=== PATIENT | male | born 1980 | race Caucasian/White ===

== ENCOUNTER 2018-03-01 09:01 | Emergency (ER) | payer MEDICARE, OTHER ==
[~2018-03-01] VITALS: Ht 170.2 cm; Wt 131.5 kg
[2018-03-01 09:06] VITALS: BP_SYST 140
[2018-03-01] MEDS ORDERED: guaiFENesin/DEXTROMETHORPHAN 10 ML UDC PO ONE (09:30)
[2018-03-01 10:45] VITALS: BP_SYST 138
== END 2018-03-01 10:28 | disposition home or self-care (01) ==
LOC: SED 09:01
DX: J40 Bronchitis, not specified as acute or chronic (principal)
CPT/HCPCS: 36415; 86710; 99283

== ENCOUNTER 2019-06-08 14:32 | Emergency (ER) | payer OTHER ==
[~2019-06-08] VITALS: Ht 170.2 cm; Wt 145.1 kg
[2019-06-08 14:40] VITALS: BP_SYST 155
[2019-06-08] MEDS ORDERED: AZITHROMYCIN 250 MG TABLET PO ONE (15:15)
[2019-06-08] MEDS ORDERED: cefTRIAXone 1 GM VIAL IM ONE (15:15)
[2019-06-08 15:19] VITALS: BP_SYST 122
[2019-06-08 15:35] LABS: BILIRUBIN,URINE 1+ (NEGATIVE); BLOOD, URINE 3+ (NEGATIVE); COLOR,URINE BROWN (YELLOW); GLUCOSE,URINE NEGATIVE (NEGATIVE); KETONES,URINE NEGATIVE (NEGATIVE); LEUKOCYTE ESTERASE ,URINE 3+ (NEGATIVE); NITRITE, URINE POSITIVE (NEGATIVE); PH,URINE 6.5 (5.0-8.0); PROTEIN URINE 2+ (NEGATIVE)
[2019-06-08 16:00] LABS: CLARITY/URINE CLOUDY (CLEAR)
[2019-06-08 16:06] LABS: RBC,URINE >100 /HPF (0-3); WBC,URINE 50-80 /HPF (0-3)
[2019-06-08 16:07] LABS: BACTERIA,URINE MODERATE /HPF (None Seen)
[2019-06-10 13:16] LABS: CHLAMYDIA TRACHOMATIS NAA Negative (Negative); NEISSERIA GONORRHOEAE NAA Negative (Negative)
== END 2019-06-08 15:15 | disposition home or self-care (01) ==
LOC: SED 14:32
DX: N39.0 Urinary tract infection, site not specified (principal)
CPT/HCPCS: 81000-TC; 82962; 87086; 87186-TC; 87491; 87591; 96372; 99283

== ENCOUNTER 2019-06-10 17:02 | Emergency (ER) | payer MEDICAID, OTHER ==
[~2019-06-10] VITALS: Ht 167.6 cm; Wt 148.8 kg
[2019-06-10 17:03] VITALS: BP_SYST 166
[2019-06-10 17:30] VITALS: BP_SYST 154
== END 2019-06-10 17:36 | disposition home or self-care (01) ==
LOC: SED 17:02
DX: N39.0 Urinary tract infection, site not specified (principal); R05 Cough
CPT/HCPCS: 99283

== ENCOUNTER 2019-07-31 11:57 | Emergency (ER) | payer MEDICAID, OTHER ==
[~2019-07-31] VITALS: Ht 167.6 cm; Wt 148.3 kg
[2019-07-31 12:37] VITALS: BP_SYST 149
--- NOTE | 2019-07-31 12:43 | NUR ---
AMBULATED TO BED 5
--- NOTE | 2019-07-31 12:49 | NUR ---
ER at bedside examining patient.
--- NOTE | 2019-07-31 12:50 | NUR ---
Pt presents to the ER for R ear pressure x today. Pt states having hx of swimmers ear. Pt states purchasing over the counter ear drops which made the R ear worse w/ slight loss of hearing. Pt tried the drops on L ear which provided relief to L ear. Denies any pain, dizziness or unsteady gait.
[2019-07-31 13:43] VITALS: BP_SYST 149
--- NOTE | 2019-07-31 13:43 | NUR ---
Patient given written and verbal discharge instructions and verbalizes understanding. ER MD discussed with patient the results and treatment provided. Patient in stable condition. ID arm band removed. Rx of Motrin, Hydrocortisone, Neomycin and Polymyxin B sulfate given. Patient educated on pain management and to follow up with PMD. Pain Scale 0/10. Opportunity for questions provided and answered. Medication side effect fact sheet provided.
== END 2019-07-31 13:43 | disposition home or self-care (01) ==
LOC: SED 11:57
DX: H60.91 Unspecified otitis externa, right ear (principal)
CPT/HCPCS: 99283

== ENCOUNTER 2023-09-06 16:57 | Emergency (ER) | payer MEDICAID, OTHER ==
[~2023-09-06] VITALS: Ht 170.2 cm; Wt 100.7 kg
[2023-09-06 17:10] VITALS: BP_SYST 137; PULSE 54; RESP 18; TEMP 101.9; O2SAT 98
[2023-09-06] MEDS ORDERED: PRED20TA PO (17:50)
[2023-09-06] MEDS ORDERED: ACET-2634 PO (17:50)
[2023-09-06] MEDS: ACETAMINOPHEN 500 MG TABLET PO ONE (17:59)
[2023-09-06 18:20] VITALS: BP_SYST 137; PULSE 54; RESP 18; TEMP 101.9; O2SAT 98
== END 2023-09-06 18:20 | disposition home or self-care (01) ==
LOC: SED 16:57
DX: B34.9 Viral infection, unspecified (principal); R50.9 Fever, unspecified; R09.89 Other specified symptoms and signs involving the circulatory and respiratory systems; R53.1 Weakness; R05.9 Cough, unspecified; Z79.899 Other long term (current) drug therapy
CPT/HCPCS: 99283